=== PATIENT | female | born 1995 | race Caucasian/White ===

== ENCOUNTER 2023-03-14 09:01 | Day surgery (SDC) | payer BC ==
[2023-03-14] MEDS ORDERED: Acetaminophen 500 MG TAB ONE (09:08)
[2023-03-14] MEDS ORDERED: Iron Sucrose Complex 500 MG in Sodium Chloride 0.9% 250 ML 250 ML IVPB SCH (09:30)
[2023-03-14] MEDS ORDERED: Acetaminophen 500 MG TAB PO SCH (09:30)
== END 2023-03-14 14:00 | disposition home or self-care (01) ==
LOC: CSHSDC 09:01
PROVIDERS: ATTEND Obstetrics & Gynecology
DX: O99.019 Anemia complicating pregnancy, unspecified trimester (principal); D64.9 Anemia, unspecified; Z3A.00 Weeks of gestation of pregnancy not specified
CPT/HCPCS: J1756; J7050

== ENCOUNTER 2023-03-26 13:33 | Inpatient (IN) | payer BC ==
[2023-03-26] MEDS ORDERED: hydrALAZINE 20 MG/ML VIAL SLOW IVP PRN ×2 (13:51→13:52)
[2023-03-26] MEDS ORDERED: Ondansetron PF 4 MG/2 ML Vial IVP PRN (13:52)
[2023-03-26] MEDS ORDERED: Docusate 100 MG CAP PO PRN (13:52)
[2023-03-26] MEDS ORDERED: HYDROcodone/Acetaminophen 5/325 mg Tablet PO PRN (13:52)
[2023-03-26] MEDS ORDERED: Diphenoxylate HCl/Atropine Tablet PO PRN ×2 (13:52)
[2023-03-26] MEDS ORDERED: Acetaminophen 500 MG TAB PO PRN (13:52)
[2023-03-26] MEDS ORDERED: Methylergonovine 0.2 MG/ML VIAL IM PRN (13:52)
[2023-03-26] MEDS ORDERED: Misoprostol 200 MCG TAB PR PRN (13:52)
[2023-03-26] MEDS ORDERED: Ibuprofen 800 MG TAB PO PRN (13:52)
[2023-03-26] MEDS ORDERED: Promethazine HCl 25 MG/ML VIAL IM PRN (13:52)
[2023-03-26] MEDS ORDERED: Carboprost 250 MCG/ML AMP IM PRN (13:52)
[2023-03-26] MEDS ORDERED: Lidocaine 1% (PF) 30 ML VIAL SC PRN (13:52)
[2023-03-26] MEDS ORDERED: Oxytocin 30 units/NS 500 ML 500 ML IV SCH ×3 (14:00)
[2023-03-26 14:17] VITALS: BMI 23.3
[2023-03-26 15:01] LABS: Hemoglobin 11.7 g/dL (12.0-15.5); Mean Corpuscular HGB CONC 34.4 g/dL (32.0-36.0); Mean Corpuscular Hemoglobin 30.7 pg (27.0-33.0); Mean Corpuscular Volume 89.2 fl (81.6-98.3); Mean Platelet Volume 10.6 fl (7.4-10.4); Platelet Count 254 10x3/uL (150-450); RBC Distribution Width 13.8 % (11.5-14.5); Red Blood Cell (RBC) Count 3.81 10x6/uL (3.90-5.03); White Blood Cell (WBC) Count 9.1 10x3/uL (3.5-10.5)
[2023-03-26 15:31] LABS: Syphilis Antibody Nonreactive (Nonreactive); Syphilis Antibody Index 0.07 S/CO (<1.00 Non-Reactive)
[2023-03-26 15:33] LABS: HBSAg Index 0.16 S/CO (0-0.99); Hep B Surf Ag - L&D Non-Reactive S/CO (NonReactive)
[2023-03-26] MEDS: Misoprostol 100 MCG TAB VAG SCH (16:21)
[2023-03-26] MEDS: Lactated Ringer's 1,000 ML IV SCH (16:21)
[2023-03-26] MEDS ORDERED: Bupivacaine 0.5% 10 ML VIAL ONE (19:44)
[2023-03-26] MEDS ORDERED: Bupivacaine 0.25% HCL 30 ML VIAL ONE (19:44)
[2023-03-26] MEDS ORDERED: diphenhydrAMINE 50 MG/ML VIAL IVP PRN (20:27)
[2023-03-27] MEDS: Misoprostol 100 MCG TAB VAG SCH (01:17)
[2023-03-27] MEDS ORDERED: fentaNYL/Ropivacaine Epidural 100 ML ONE (02:23)
[2023-03-27] MEDS ORDERED: Promethazine HCl 25 MG/ML VIAL IM PRN (02:54)
[2023-03-27] MEDS ORDERED: Naloxone HCl 0.4 mg/ml Vial IVP PRN ×2 (02:54)
[2023-03-27] MEDS ORDERED: Ondansetron PF 4 MG/2 ML Vial IVP PRN ×2 (02:54→14:53)
[2023-03-27] MEDS ORDERED: ePHEDrine Sulfate 50 MG/10 ML VIAL SLOW IVP PRN (02:54)
[2023-03-27] MEDS ORDERED: Lactated Ringer's 500 ML IV PRN (02:54)
[2023-03-27] MEDS ORDERED: Moisturizing Cream (Eucerin) 113 GM JAR TOP PRN (02:54)
[2023-03-27] MEDS ORDERED: diphenhydrAMINE 50 MG/ML VIAL IVP PRN (02:54)
[2023-03-27] MEDS ORDERED: fentaNYL 2 mcg/Ropivacaine 0.2% Epidural 100 ML CADD EPIDURAL SCH (03:00)
[2023-03-27] MEDS ORDERED: Communication Order-Pharmacy FS SCH (03:00)
[2023-03-27] MEDS: Acetaminophen 325 MG TAB PO PRN ×2 (14:42→23:29)
[2023-03-27] MEDS ORDERED: hydrALAZINE 20 MG/ML VIAL SLOW IVP PRN (14:53)
[2023-03-27] MEDS ORDERED: diphenhydrAMINE 25 MG CAP PO PRN (14:53)
[2023-03-27] MEDS ORDERED: Lanolin Ointment 7 GM TUBE TOP PRN (14:53)
[2023-03-27] MEDS ORDERED: HYDROcodone/Acetaminophen 5/325 mg Tablet PO PRN (14:53)
[2023-03-27] MEDS ORDERED: Methylergonovine 0.2 MG/ML VIAL IM PRN (14:53)
[2023-03-27] MEDS ORDERED: Benzocaine-Menthol 82.5 ML CAN TOP PRN (14:53)
[2023-03-27] MEDS ORDERED: Preparation H Ointment 28 GM TUBE PR PRN (14:53)
[2023-03-27] MEDS ORDERED: Oxytocin 30 units/NS 500 ML 500 ML IV SCH (14:53)
[2023-03-27] MEDS ORDERED: Milk Of Magnesia 30 ML UDCUP PO PRN (14:53)
[2023-03-27] MEDS ORDERED: Bisacodyl 10 MG SUPP PR PRN (14:53)
[2023-03-27] MEDS ORDERED: Misoprostol 200 MCG TAB VAG PRN (14:53)
[2023-03-27] MEDS: Ferrous Sulfate 325 MG TAB PO SCH (19:54)
[2023-03-27] MEDS: Docusate 100 MG CAP PO SCH (20:00)
[2023-03-27] MEDS: Ibuprofen 800 MG TAB PO SCH (20:00)
[2023-03-28] MEDS: Ibuprofen 800 MG TAB PO SCH ×2 (03:38→11:26)
[2023-03-28] MEDS: Ferrous Sulfate 325 MG TAB PO SCH (07:29)
[2023-03-28] MEDS: Misoprostol 100 MCG TAB VAG SCH ×2 (07:30→07:31)
[2023-03-28] MEDS: Lactated Ringer's 1,000 ML IV SCH (07:31)
[2023-03-28] MEDS: Docusate 100 MG CAP PO SCH (07:55)
[2023-03-28] MEDS ORDERED: Prenatal Vitamin 1 TAB PO SCH (09:00)
[2023-03-28 10:47] VITALS: BP 111/67; TEMP 98.3
== END 2023-03-28 18:15 | disposition home or self-care (01) | DRG 768 ==
LOC: CSHLD/OP 13:33 → CSHLD 15:24 → CSHPP 03-27 14:15
PROVIDERS: ADMIT Obstetrics & Gynecology; ATTEND Obstetrics & Gynecology
PROC: 3E0P7VZ Introduction of Hormone into Female Reproductive, Via Natural or Artificial Opening (ICD-10-PCS; 2023-03-26)
PROC: 10E0XZZ Delivery of Products of Conception, External Approach (ICD-10-PCS; principal; 2023-03-27)
PROC: 0DQR0ZZ Repair Anal Sphincter, Open Approach (ICD-10-PCS; 2023-03-27)
PROC: 0T9B70Z Drainage of Bladder with Drainage Device, Via Natural or Artificial Opening (ICD-10-PCS; 2023-03-27)
DX: O99.02 Anemia complicating childbirth (principal); Z37.0 Single live birth; O70.21 Third degree perineal laceration during delivery, IIIa; Z3A.39 39 weeks gestation of pregnancy; D64.9 Anemia, unspecified; O71.82 Other specified trauma to perineum and vulva; R33.8 Other retention of urine; O99.893 Other specified diseases and conditions complicating puerperium
CPT/HCPCS: 36416; 51702; 85027; 86780; 86850; 86900; 86901; 87340; J1200; J2590; J3490; J7120; S0020